=== PATIENT | female | born 1975 | race African-American/Black ===

== ENCOUNTER 2017-10-22 10:22 | Emergency (ER) | payer MEDICAID ==
[~2017-10-22] VITALS: Ht 167.6 cm; Wt 72.0 kg
[~2017-10-22 10:22] MED LIST: ACYC200C PO; EMTR1TAB11 PO; EVIS60 PO; PREN-88 PO; SULF-165 PO
[2017-10-22] MEDS ORDERED: ONDANSETRON HCL 4MG/2ML VIAL IV STA (11:01)
[2017-10-22] MEDS ORDERED: MORPHINE SULFATE 4 MG/ML CPJ (NOT FOR IM USE) IV STA (11:01)
[2017-10-22] MEDS ORDERED: KETOROLAC 30MG/ML VIAL IV STA (11:01)
[2017-10-22] MEDS ORDERED: SODIUM CHLORIDE 0.9% 1000ML BAG (SEPSIS BOLUS) IV ONE (11:15)
[2017-10-22] MEDS ORDERED: FAMOTIDINE 20MG/2ML VIAL IV ONE (11:15)
[2017-10-22 11:57] LABS: BASOPHILS % 0.2 % (0.0-2.0); EOSINOPHILS % 0.1 % (0.0-5.0); HEMATOCRIT. 38.8 % (36.0-48.0); HEMOGLOBIN. 13.2 g/dL (12.0-16.0); LYMPHOCYTES % 11.6 % (20.0-50.0); MEAN CORPUSCULAR HEMOGLOBIN 35.7 pg (28.0-32.0); MEAN CORPUSCULAR VOLUME 105.2 fL (81.0-99.0); MEAN PLATELET VOLUME 9.3 fl (7.4-10.4); MONOCYTES % 6.5 % (2.0-8.0); NEUTROPHILS % 81.6 % (40.0-76.0); PLATELET 197 x1000/uL (130-400); RED BLOOD CELL COUNT 3.69 mill/uL (4.2-5.4); RED CELL DISTRIBUTION WIDTH 13.6 % (11.6-14.6)
[2017-10-22 12:04] LABS: PROTHROMBIN TIME 10.8 sec (9.4-11.6)
[2017-10-22 12:13] LABS: CHLORIDE 108 mEq/L (98-107)
[2017-10-22 13:11] VITALS: BP 138/89
== END 2017-10-22 13:13 | disposition home or self-care (01) ==
LOC: ER 10:22 → CANBEDREQ 17:30
DX: F11.23 Opioid dependence with withdrawal (principal); J45.909 Unspecified asthma, uncomplicated; G89.29 Other chronic pain; Z88.0 Allergy status to penicillin; Z88.6 Allergy status to analgesic agent; Z88.8 Allergy status to other drugs, medicaments and biological substances
CPT/HCPCS: 36415; 71045; 80053; 83605; 83690; 83880; 84484; 85025; 85610; 87040; 93005; 96361; 96374; 96375; 99285; J1885; J2270; J2405; J3490; J7030

== ENCOUNTER 2018-11-01 03:50 | Emergency (ER) | payer MEDICAID ==
[~2018-11-01] VITALS: Ht 170.2 cm; Wt 59.0 kg
[2018-11-01 04:32] LABS: BASOPHILS % 0.5 % (0.0-2.0); EOSINOPHILS % 1.7 % (0.0-5.0); HEMATOCRIT. 36.4 % (36.0-48.0); HEMOGLOBIN. 12.6 g/dL (12.0-16.0); LYMPHOCYTES % 21.9 % (20.0-50.0); MEAN CORPUSCULAR HEMOGLOBIN 35.4 pg (28.0-32.0); MEAN CORPUSCULAR VOLUME 102.6 fL (81.0-99.0); MEAN PLATELET VOLUME 9.4 fl (7.4-10.4); MONOCYTES % 9.4 % (2.0-8.0); NEUTROPHILS % 66.5 % (40.0-76.0); PLATELET 141 x1000/uL (130-400); RED BLOOD CELL COUNT 3.55 mill/uL (4.2-5.4); RED CELL DISTRIBUTION WIDTH 14.5 % (11.6-14.6)
[2018-11-01 04:38] LABS: CHLORIDE 112 mEq/L (98-107)
[2018-11-01 04:43] LABS: ETHANOL BLOOD < 10 mg/dL
[2018-11-01 05:08] LABS: CLARITY URINE CLEAR (CLEAR); COLOR URINE YELLOW (YELLOW); KETONES URINE TRACE (NEGATIVE); LEUKOCYTE ESTERASE URINE NEGATIVE (NEGATIVE); NITRITE URINE NEGATIVE (NEGATIVE); OCCULT BLOOD URINE NEGATIVE (NEGATIVE); PROTEIN URINE NEGATIVE (NEGATIVE); SPECIFIC GRAVITY URINE 1.037 (1.005-1.030); UROBILINOGEN URINE 0.2 E.U./dL (0.2-1.0)
[2018-11-01 05:32] LABS: METHADONE URINE SCREEN NEGATIVE (NEGATIVE)
[2018-11-01 05:33] LABS: *AMPHETAMINES SCREEN URINE NEGATIVE (NEGATIVE); *BARBITURATES SCREEN URINE NEGATIVE (NEGATIVE); PHENCYCLIDINE URINE SCREEN NEGATIVE (NEGATIVE)
[2018-11-01 05:34] LABS: *COCAINE SCREEN URINE NEGATIVE (NEGATIVE)
[2018-11-01 05:36] LABS: *BENZODIAZEPINES SCREEN URINE PRESUMTIVE POSITIVE (NEGATIVE); CANNABINOID URINE SCREEN PRESUMTIVE POSITIVE (NEGATIVE); OPIATES URINE SCREEN PRESUMTIVE POSITIVE (NEGATIVE)
[2018-11-01] MEDS ORDERED: NICOTINE 14MG PATCH TD ONE (07:45)
[2018-11-01 10:20] VITALS: BP 118/62
== END 2018-11-01 10:29 | disposition home or self-care (01) ==
LOC: ER 03:50
DX: F78 Other intellectual disabilities (principal); T42.8X1A Poisoning by antiparkinsonism drugs and other central muscle-tone depressants, accidental (unintentional), initial encounter; T42.6X1A Poisoning by other antiepileptic and sedative-hypnotic drugs, accidental (unintentional), initial encounter; J45.909 Unspecified asthma, uncomplicated; I10 Essential (primary) hypertension; F17.200 Nicotine dependence, unspecified, uncomplicated; Z98.890 Other specified postprocedural states; Z88.0 Allergy status to penicillin; Z88.6 Allergy status to analgesic agent; Z88.9 Allergy status to unspecified drugs, medicaments and biological substances; Z88.1 Allergy status to other antibiotic agents; Z79.899 Other long term (current) drug therapy; Y92.89 Other specified places as the place of occurrence of the external cause
CPT/HCPCS: 36415; 80053; 80305; 80307; 80320; 80329; 81003; 81025; 82962; 85025; 99283; Z7610; G0480

== ENCOUNTER 2018-11-05 05:50 | Inpatient (IN) | payer MEDICAID ==
[~2018-11-05] VITALS: Ht 165.1 cm; Wt 65.3 kg
[2018-11-05] MEDS ORDERED: ACETAMINOPHEN 500MG TABLET PO ONE (06:30)
[2018-11-05] MEDS ORDERED: SODIUM CHLORIDE 0.9% 1000ML BAG (SEPSIS BOLUS) IV ONE (06:30)
[2018-11-05] MEDS ORDERED: AZITHROMYCIN 500 MG in DEXT 5% WATER 250 ML IV ONE (06:30)
[2018-11-05] MEDS ORDERED: CEFTRIAXONE 1 G PREMIX 50 ML IV ONE (06:30)
[2018-11-05 06:55] LABS: BASOPHILS % 0.1 % (0.0-2.0); EOSINOPHILS % 0.1 % (0.0-5.0); HEMATOCRIT. 36.1 % (36.0-48.0); HEMOGLOBIN. 12.6 g/dL (12.0-16.0); LYMPHOCYTES % 7.9 % (20.0-50.0); MEAN CORPUSCULAR HEMOGLOBIN 34.4 pg (28.0-32.0); MEAN CORPUSCULAR VOLUME 98.6 fL (81.0-99.0); MEAN PLATELET VOLUME 9.9 fl (7.4-10.4); NEUTROPHILS % 86.9 % (40.0-76.0); PLATELET 172 x1000/uL (130-400); RED BLOOD CELL COUNT 3.67 mill/uL (4.2-5.4); RED CELL DISTRIBUTION WIDTH 14.2 % (11.6-14.6)
[2018-11-05 06:57] LABS: CHLORIDE 109 mEq/L (98-107)
[2018-11-05 09:32] LABS: CLARITY URINE CLEAR (CLEAR); COLOR URINE YELLOW (YELLOW); KETONES URINE NEGATIVE (NEGATIVE); LEUKOCYTE ESTERASE URINE NEGATIVE (NEGATIVE); NITRITE URINE NEGATIVE (NEGATIVE); OCCULT BLOOD URINE TRACE (NEGATIVE); PH URINE 6.5 (4.5-8.0); PROTEIN URINE NEGATIVE (NEGATIVE); SPECIFIC GRAVITY URINE 1.006 (1.005-1.030); UROBILINOGEN URINE 0.2 E.U./dL (0.2-1.0)
[2018-11-05 10:35] VITALS: BP 114/77
[2018-11-05] MEDS ORDERED: CLONIDINE 0.1MG TABLET PO PRN (11:45)
[2018-11-05] MEDS ORDERED: ONDANSETRON HCL 4MG/2ML INJ IV PRN (11:45)
[2018-11-05] MEDS ORDERED: DOCUSATE SODIUM 100MG CAPSULE PO PRN (11:45)
[2018-11-05] MEDS ORDERED: POTASSIUM CHLORIDE 20MEQ TABLET SR PO NR (11:45)
[2018-11-05 12:00] VITALS: BP 122/70
[2018-11-05] MEDS ORDERED: NON FORMULARY PATIENT HOME MED XX SCH (12:00)
[2018-11-05] MEDS: SULFAMETHOXAZOLE/TRIMETHOPRIM 800/160MG TABLET PO SCH (13:19)
[2018-11-05] MEDS: HYDROCODONE/ACETAMINOPHEN 5/325MG TABLET PO PRN ×2 (13:24→17:36)
[2018-11-05] MEDS ORDERED: ACYC200C PO (14:33)
[2018-11-05 14:34] LABS: *AMPHETAMINES SCREEN URINE NEGATIVE (NEGATIVE); *BARBITURATES SCREEN URINE NEGATIVE (NEGATIVE); *BENZODIAZEPINES SCREEN URINE NEGATIVE (NEGATIVE); *COCAINE SCREEN URINE NEGATIVE (NEGATIVE); METHADONE URINE SCREEN NEGATIVE (NEGATIVE)
[2018-11-05 14:35] LABS: OPIATES URINE SCREEN NEGATIVE (NEGATIVE); PHENCYCLIDINE URINE SCREEN NEGATIVE (NEGATIVE)
[2018-11-05] MEDS ORDERED: OMEP40CA34 MT (14:38)
[2018-11-05 14:41] LABS: CANNABINOID URINE SCREEN PRESUMTIVE POSITIVE (NEGATIVE)
[2018-11-05] MEDS: LORAZEPAM 0.5MG TABLET PO PRN ×2 (15:06→23:38)
[2018-11-05 16:00] VITALS: BP 120/69
[2018-11-05] MEDS: IPRATROPIUM/ALBUTEROL 0.5-3(2.5)MG/3ML NEB INH PRN (16:54)
[2018-11-05] MEDS: ACYCLOVIR 400 MG TABLET PO SCH (17:27)
[2018-11-05] MEDS: SYMTUZA PO SCH (17:27)
[2018-11-05 20:00] VITALS: BP 107/67
[2018-11-05] MEDS: GUAIFENESIN 200MG/10ML SUGAR FREE UDC PO PRN (22:14)
[2018-11-05] MEDS ORDERED: DIPHENHYDRAMINE 25MG CAPSULE PO PRN (22:30)
[2018-11-06] VITALS: BP 123/63
[2018-11-06] MEDS: HYDROCODONE/ACETAMINOPHEN 5/325MG TABLET PO PRN ×4 (00:38→20:15)
[2018-11-06 04:00] VITALS: BP 122/68
[2018-11-06] MEDS: IPRATROPIUM/ALBUTEROL 0.5-3(2.5)MG/3ML NEB INH PRN (04:37)
[2018-11-06] MEDS: CEFTRIAXONE 1 G PREMIX 50 ML IV SCH (05:05)
[2018-11-06 07:38] LABS: BASOPHILS % 0.2 % (0.0-2.0); EOSINOPHILS % 0.8 % (0.0-5.0); HEMATOCRIT. 31.1 % (36.0-48.0); HEMOGLOBIN. 10.6 g/dL (12.0-16.0); LYMPHOCYTES % 15.8 % (20.0-50.0); MEAN CORPUSCULAR HEMOGLOBIN 34.2 pg (28.0-32.0); MEAN CORPUSCULAR VOLUME 100.5 fL (81.0-99.0); MEAN PLATELET VOLUME 10.1 fl (7.4-10.4); MONOCYTES % 6.9 % (2.0-8.0); NEUTROPHILS % 76.3 % (40.0-76.0); PLATELET 148 x1000/uL (130-400); RED CELL DISTRIBUTION WIDTH 14.3 % (11.6-14.6)
[2018-11-06 08:00] VITALS: BP 101/53
[2018-11-06 08:35] LABS: CHLORIDE 112 mEq/L (98-107)
[2018-11-06] MEDS: ACYCLOVIR 400 MG TABLET PO SCH (08:46)
[2018-11-06] MEDS: SULFAMETHOXAZOLE/TRIMETHOPRIM 800/160MG TABLET PO SCH (08:46)
[2018-11-06] MEDS: SYMTUZA PO SCH (08:47)
[2018-11-06] MEDS: ACETAMINOPHEN 325MG TABLET PO PRN ×2 (08:49→22:29)
[2018-11-06] MEDS ORDERED: ACYCLOVIR 800 MG PO SCH (09:00)
[2018-11-06] MEDS ORDERED: MEDICATION NOT ON FORMULARY EA (Omeprazole 1 CAP) MT SCH (09:00)
[2018-11-06] MEDS: LORAZEPAM 0.5MG TABLET PO PRN ×3 (10:33→20:15)
[2018-11-06 12:00] VITALS: BP 96/53
[2018-11-06 16:00] VITALS: BP 102/54
[2018-11-06 20:00] VITALS: BP 136/59
[2018-11-07] VITALS: BP 112/58
[2018-11-07 04:00] VITALS: BP 105/59
[2018-11-07] MEDS: CEFTRIAXONE 1 G PREMIX 50 ML IV SCH (05:33)
[2018-11-07] MEDS: HYDROCODONE/ACETAMINOPHEN 5/325MG TABLET PO PRN ×3 (06:37→20:31)
[2018-11-07] MEDS: LORAZEPAM 0.5MG TABLET PO PRN ×3 (07:05→23:10)
[2018-11-07 07:34] LABS: BASOPHILS % 0.5 % (0.0-2.0); EOSINOPHILS % 1.6 % (0.0-5.0); HEMATOCRIT. 33.4 % (36.0-48.0); HEMOGLOBIN. 11.4 g/dL (12.0-16.0); LYMPHOCYTES % 25.6 % (20.0-50.0); MEAN CORPUSCULAR HEMOGLOBIN 34.3 pg (28.0-32.0); MEAN CORPUSCULAR VOLUME 100.6 fL (81.0-99.0); MEAN PLATELET VOLUME 10.1 fl (7.4-10.4); MONOCYTES % 7.1 % (2.0-8.0); NEUTROPHILS % 65.2 % (40.0-76.0); PLATELET 193 x1000/uL (130-400); RED BLOOD CELL COUNT 3.32 mill/uL (4.2-5.4); RED CELL DISTRIBUTION WIDTH 14.3 % (11.6-14.6)
[2018-11-07 07:36] LABS: CHLORIDE 112 mEq/L (98-107)
[2018-11-07 08:00] VITALS: BP 119/76
[2018-11-07] MEDS: IPRATROPIUM/ALBUTEROL 0.5-3(2.5)MG/3ML NEB INH PRN ×3 (08:00→21:00)
[2018-11-07] MEDS: SYMTUZA PO SCH (08:41)
[2018-11-07] MEDS: ACYCLOVIR 400 MG TABLET PO SCH (08:42)
[2018-11-07] MEDS: SULFAMETHOXAZOLE/TRIMETHOPRIM 800/160MG TABLET PO SCH (08:42)
[2018-11-07] MEDS: NICOTINE 14MG PATCH TD SCH (09:03)
[2018-11-07 09:08] LABS: ABSOLUTE LYMPHOCYTES 1.4 x10E3/uL (0.7-3.1); ABSOLUTE MONOCYTES 0.5 x10E3/uL (0.1-0.9); ABSOLUTE NEUTROPHILS 10.6 x10E3/uL (1.4-7.0); BASOPHILS 0 % (Not Estab.); HEMATOCRIT 33.5 % (34.0-46.6); HEMOGLOBIN 11.2 g/dL (11.1-15.9); IMMATURE GRANULOCYTES 0 % (Not Estab.); LYMPHOCYTES 11 % (Not Estab.); MEAN CORPUSCULAR HEMOGLOBIN 33.4 pg (26.6-33.0); MEAN CORPUSCULAR HGB CONC. 33.4 g/dL (31.5-35.7); MEAN CORPUSCULAR VOLUME 100 fL (79-97); MONOCYTES 4 % (Not Estab.); NEUTROPHILS 85 % (Not Estab.); PLATELETS 184 x10E3/uL (150-379); RBC 3.35 x10E6/uL (3.77-5.28); RED CELL DISTRIBUTION WIDTH 14.2 % (12.3-15.4); WBC 12.6 x10E3/uL (3.4-10.8)
[2018-11-07 10:10] LABS: % CD 3 POS. LYMPHOCYTES 79.9 % (57.5-86.2); % CD 4 POS. LYMPHOCYTES 26.9 % (30.8-58.5); % CD 8 POS. LYMPH 52.1 % (12.0-35.5); ABSOLUTE CD 3 1119 /uL (622-2402); ABSOLUTE CD 4 HELPER 377 /uL (359-1519); ABSOLUTE CD 8 SUPPRESSOR 729 /uL (109-897); CD4/CD8 RATIO 0.52 (0.92-3.72)
[2018-11-07] MEDS: GUAIFENESIN 200MG/10ML SUGAR FREE UDC PO PRN (11:17)
[2018-11-07 12:00] VITALS: BP 122/98
[2018-11-07] MEDS: CARISOPRODOL 350 MG TABLET PO PRN ×2 (13:46→20:31)
[2018-11-07] MEDS: BUDESONIDE 0.5MG/2ML NEB HHN SCH ×2 (14:36→21:00)
[2018-11-07 16:00] VITALS: BP 118/89
[2018-11-07] MEDS: GUAIFENESIN/CODEINE 200-20MG/10ML UDC PO PRN ×2 (17:05→23:10)
[2018-11-07 20:00] VITALS: BP 122/44
[2018-11-08] MEDS: CEFTRIAXONE 1 G PREMIX 50 ML IV SCH (06:53)
[2018-11-08] MEDS ORDERED: BENZONATATE 100MG CAPSULE PO SCH (07:45)
[2018-11-08 08:00] VITALS: BP 108/56
[2018-11-08] MEDS: CARISOPRODOL 350 MG TABLET PO PRN (08:06)
[2018-11-08] MEDS: HYDROCODONE/ACETAMINOPHEN 5/325MG TABLET PO PRN (08:07)
[2018-11-08] MEDS: SYMTUZA PO SCH (08:08)
[2018-11-08] MEDS: BUDESONIDE 0.5MG/2ML NEB HHN SCH (09:02)
[2018-11-08] MEDS: ACYCLOVIR 400 MG TABLET PO SCH (09:22)
[2018-11-08] MEDS: SULFAMETHOXAZOLE/TRIMETHOPRIM 800/160MG TABLET PO SCH (09:22)
[2018-11-08] MEDS: NICOTINE 14MG PATCH TD SCH (09:22)
[2018-11-08] MEDS ORDERED: BENZ100C86 PO (11:58)
[2018-11-08] MEDS ORDERED: LORA-249 PO (11:58)
[2018-11-08] MEDS ORDERED: GUAI10LI9 PO (11:58)
[2018-11-08] MEDS ORDERED: GUAIFENESIN/CODEINE 200-20MG/10ML UDC PO SCH (12:00)
[2018-11-08] MEDS ORDERED: FLUT1AER IH (12:03)
[2018-11-08 16:00] VITALS: BP 145/66
[2018-11-14 09:06] LABS: *HIV-1 RNA BY PCR 30 copies/mL (.)
== END 2018-11-08 13:30 | disposition home or self-care (01) | DRG 892 ==
LOC: ER 05:50 → 7WST 08:08 → EDBEDREQSVC 08:10 → EDBEDREQ 08:10 → EDBEDREQTM 08:10 → ENRESERV 08:24 → 7WST 10:18
PROVIDERS: ADMIT Internal Medicine; ATTEND Internal Medicine
DX: B20 Human immunodeficiency virus [HIV] disease (principal); A41.9 Sepsis, unspecified organism; J18.9 Pneumonia, unspecified organism; J44.0 Chronic obstructive pulmonary disease with (acute) lower respiratory infection; J98.11 Atelectasis; E87.6 Hypokalemia; I10 Essential (primary) hypertension; F12.90 Cannabis use, unspecified, uncomplicated; F17.210 Nicotine dependence, cigarettes, uncomplicated; Z88.0 Allergy status to penicillin; Z88.8 Allergy status to other drugs, medicaments and biological substances; Z88.1 Allergy status to other antibiotic agents; Z91.19 Patient's noncompliance with other medical treatment and regimen; Z98.891 History of uterine scar from previous surgery
CPT/HCPCS: 36415; 71045; 80048; 80305; 83605; 84145; 84484; 86359; 86360; 87536; 87804; 93005; 94640; 96365; 96367; 99291; J0456; J0696; J7030; J7050; J7060; J7620; J7626

== ENCOUNTER 2018-11-08 20:24 | Emergency (ER) | payer MEDICAID ==
[~2018-11-08 20:24] MED LIST changes: +BENZ100C86 PO; -EMTR1TAB11 PO; +FLUT1AER IH; +GUAI10LI9 PO; +LORA-249 PO; +OMEP40CA34 MT
== END 2018-11-08 21:32 | disposition left against medical advice (07) ==
LOC: ER 20:24
DX: R68.89 Other general symptoms and signs (principal); Z53.21 Procedure and treatment not carried out due to patient leaving prior to being seen by health care provider

== ENCOUNTER 2023-03-18 14:09 | Emergency (ER) | payer MEDICAID ==
[~2023-03-18] VITALS: Ht 165.1 cm; Wt 60.0 kg
[~2023-03-18 14:09] MED LIST changes: -ACYC200C PO; +ACYC200C31 PO; +OMEP40CA20 MT; -OMEP40CA34 MT
[2023-03-18 14:11] VITALS: BP 105/78; PULSE 82; RESP 18; TEMP 98.6; O2SAT 99
[2023-03-18] MEDS ORDERED: ONDANSETRON 4MG ODT PO ONE (14:15)
[2023-03-18] MEDS ORDERED: DIPHENHYDRAMINE 50MG CAPSULE PO ONE (14:15)
[2023-03-18] MEDS ORDERED: FAMOTIDINE 20MG TABLET PO ONE (14:15)
[2023-03-18] MEDS ORDERED: ONDA4TAB11 PO (14:21)
[2023-03-18] MEDS ORDERED: DIPH25CA83 PO (14:21)
[2023-03-18] MEDS ORDERED: FAMO-135 MT (14:21)
[2023-03-18] MEDS ORDERED: DIPHENHYDRAMINE 25MG CAPSULE PO NR (14:30)
== END 2023-03-18 14:44 | disposition home or self-care (01) ==
LOC: ER 14:09
DX: T78.40XA Allergy, unspecified, initial encounter (principal); J45.909 Unspecified asthma, uncomplicated; Z79.899 Other long term (current) drug therapy; Z98.890 Other specified postprocedural states; X58.XXXA Exposure to other specified factors, initial encounter
CPT/HCPCS: 99284; Q0163; Q0162